=== PATIENT | female | born 1980 | race Asian ===

== ENCOUNTER 2017-06-13 20:45 | Inpatient (IN) | payer BC ==
[~2017-06-13] VITALS: Ht 157.5 cm; Wt 78.6 kg
[2017-06-13] MEDS ORDERED: PROMETHAZINE 25 MG/ML, 1ML IM ONE (21:30)
[2017-06-13] MEDS ORDERED: MEPERIDINE/PF 50 MG/ML IM PRN (21:30)
[2017-06-13] MEDS ORDERED: OXYTOCIN 30U/ 0.9% NaCL 500ML 500 ML IV ONE (21:36)
[2017-06-13] MEDS ORDERED: NEWBORN KIT ONE (21:38)
[2017-06-13] MEDS ORDERED: OXYTOCIN 30U/ 0.9% NaCL 500ML 500 ML ONE (21:38)
[2017-06-13] MEDS ORDERED: MISOPROSTOL 200 MCG TABLET ONE (21:38)
[2017-06-13] MEDS ORDERED: LIDOCAINE 1%, 20ML ONE (21:38)
[2017-06-13] MEDS ORDERED: FENTANYL PF 100 MCG/2ML ONE (21:43)
[2017-06-13] MEDS: LACTATED RINGERS 1,000 ML IV SCH ×2 (21:50→23:14)
[2017-06-13] MEDS ORDERED: TERBUTALINE 1 MG/ML, 1ML IVPush PRN (22:00)
[2017-06-13] MEDS ORDERED: FENTANYL PF 100 MCG/2ML IV PRN (22:00)
[2017-06-13] MEDS ORDERED: ONDANSETRON 2MG/ML, 2ML IVPush PRN (22:00)
[2017-06-13] MEDS ORDERED: FENTANYL PF 100 MCG/2ML IVPush PRN (22:00)
[2017-06-13 22:09] LABS: HEMATOCRIT 35.3 % (34.6-47.8); HEMOGLOBIN 11.7 g/dL (11.7-16.4); WHITE BLOOD COUNT 13.4 x10^3/uL (3.4-10)
[2017-06-13] MEDS ORDERED: FENTANYL/BUPIV./NS/PF 250 ML EPIDCONT ONE (22:42)
[2017-06-13] MEDS ORDERED: LIDOCAINE/PF 1.5%-EPI 1:200K, 30ML ONE (22:42)
[2017-06-13] MEDS ORDERED: FENTANYL/BUPIV./NS/PF 250 ML EPIDCONT SCH (23:14)
[2017-06-13] MEDS ORDERED: EPHEDRINE 50 MG/ML, 1ML IVPush PRN (23:30)
[2017-06-13] MEDS ORDERED: LACTATED RINGERS 1,000 ML IVBOLUS PRN (23:30)
[2017-06-13] MEDS ORDERED: NALOXONE 0.4 MG/ML, 1ML IVPush PRN (23:30)
[2017-06-14] MEDS ORDERED: PREN1TAB60 PO (00:23)
[2017-06-14] MEDS: LACTATED RINGERS 1,000 ML IV SCH ×2 (01:28→05:36)
[2017-06-14] MEDS ORDERED: OXYTOCIN 30U/ 0.9% NaCL 500ML 500 ML IV PRN (05:34)
[2017-06-14] MEDS ORDERED: D5%-LACTATED RINGERS 1,000 ML IV SCH (06:01)
[2017-06-14] MEDS ORDERED: AMPICILLIN 2 GM in SODIUM CHLORIDE 0.9% 100 ML IV SCH (07:30)
[2017-06-14] MEDS ORDERED: GENTAMICIN PER PHARMACY MC PRN (07:30)
[2017-06-14] MEDS ORDERED: ACETAMINOPHEN 325 MG TABLET ONE (07:30)
[2017-06-14] MEDS ORDERED: ACETAMINOPHEN 325 MG TABLET PO PRN ×4 (07:30→10:00)
[2017-06-14] MEDS ORDERED: GENTAMICIN 360 MG in SODIUM CHLORIDE 0.9% 100 ML IV SCH (08:00)
[2017-06-14] MEDS ORDERED: PHARMACOKINETIC MONITORING MC PRN (08:00)
[2017-06-14] MEDS ORDERED: PHARMACOKINETIC CONSULTATION MC ONE (08:00)
[2017-06-14] MEDS: OXYTOCIN 30U/ 0.9% NaCL 500ML 500 ML IV SCH ×2 (09:53→19:53)
[2017-06-14] MEDS ORDERED: CARBOPROST TROMETHAMINE 250 MCG/ML, 1ML IM PRN (10:00)
[2017-06-14] MEDS ORDERED: GLYCERIN ADULT SUPP PR PRN (10:00)
[2017-06-14] MEDS ORDERED: OXYcodone/APAP 5/325MG TABLET PO PRN ×2 (10:00)
[2017-06-14] MEDS ORDERED: BISACODYL 10 MG SUPP PR PRN (10:00)
[2017-06-14] MEDS ORDERED: METHYLERGONOVINE 0.2 MG/ML IM PRN (10:00)
[2017-06-14] MEDS ORDERED: MISOPROSTOL 200 MCG TABLET PR PRN (10:00)
[2017-06-14] MEDS ORDERED: ONDANSETRON 2MG/ML, 2ML IV PRN (10:00)
[2017-06-14 11:34] VITALS: BP 105/60
[2017-06-14 15:59] VITALS: BP 110/73
[2017-06-14 19:00] VITALS: BP 109/80
[2017-06-14] MEDS: IBUPROFEN 600 MG TABLET PO PRN (19:03)
[2017-06-14] MEDS: DOCUSATE 100 MG CAPSULE PO PRN (19:03)
[2017-06-14 19:05] LABS: HEMATOCRIT 33.6 % (34.6-47.8); HEMOGLOBIN 11.2 g/dL (11.7-16.4); WHITE BLOOD COUNT 22.3 x10^3/uL (3.4-10)
[2017-06-14 20:08] LABS: DIFF TOTAL CELLS COUNTED 100 CELL DIFF
[2017-06-14 20:11] LABS: ANISOCYTOSIS 1+; VERIFY COUNTS? YES
[2017-06-14] MEDS ORDERED: LIDOCAINE/PF 1.5%-EPI 1:200K, 30ML ONE (22:46)
[2017-06-14] MEDS ORDERED: EPHEDRINE 50 MG/ML, 1ML ONE (22:46)
[2017-06-15 00:11] VITALS: BP 95/57
[2017-06-15 03:50] VITALS: BP 100/62
[2017-06-15] MEDS: IBUPROFEN 600 MG TABLET PO PRN ×4 (03:50→23:38)
[2017-06-15] MEDS: OXYTOCIN 30U/ 0.9% NaCL 500ML 500 ML IV SCH ×3 (05:53→22:00)
[2017-06-15] MEDS ORDERED: PRENATAL VIT/IRON/FA 1 EACH TABLET ONE (07:08)
[2017-06-15 07:30] VITALS: BP 92/57
[2017-06-15] MEDS ORDERED: PRENATAL VIT/IRON/FA 1 EACH TABLET PO SCH (09:00)
[2017-06-15] MEDS: DOCUSATE 100 MG CAPSULE PO PRN (20:25)
[2017-06-15 21:10] VITALS: BP 120/78
[2017-06-15] MEDS ORDERED: ONDANSETRON 2MG/ML, 2ML IV PRN (22:00)
[2017-06-15] MEDS ORDERED: METHYLERGONOVINE 0.2 MG/ML IM PRN (22:00)
[2017-06-15] MEDS ORDERED: ACETAMINOPHEN 325 MG TABLET PO PRN ×2 (22:00)
[2017-06-15] MEDS ORDERED: BISACODYL 10 MG SUPP PR PRN (22:00)
[2017-06-15] MEDS ORDERED: OXYcodone/APAP 5/325MG TABLET PO PRN (22:00)
[2017-06-16] MEDS: OXYcodone/APAP 5/325MG TABLET PO PRN ×2 (00:26→07:44)
[2017-06-16] MEDS ORDERED: PRENATAL VIT/IRON/FA 1 EACH TABLET ONE (07:41)
[2017-06-16] MEDS: DOCUSATE 100 MG CAPSULE PO PRN (07:43)
[2017-06-16] MEDS: IBUPROFEN 600 MG TABLET PO PRN (07:43)
[2017-06-16] MEDS: OXYTOCIN 30U/ 0.9% NaCL 500ML 500 ML IV SCH ×2 (08:00→09:05)
[2017-06-16 08:10] VITALS: BP 122/73
[2017-06-16] MEDS ORDERED: PRENATAL VIT/IRON/FA 1 EACH TABLET PO SCH (09:00)
[2017-06-16] MEDS ORDERED: OXYC-302 PO (10:54)
[2017-06-16] MEDS ORDERED: IBUP-1223 PO (10:55)
== END 2017-06-16 12:43 | disposition home or self-care (01) | DRG 775 ==
LOC: LDOP 20:45 → LDIP 21:40 → 2NW 06-14 11:21
PROVIDERS: ADMIT Obstetrics & Gynecology Gynecology; ATTEND Obstetrics & Gynecology Gynecology
PROC: 10E0XZZ Delivery of Products of Conception, External Approach (ICD-10-PCS; principal; 2017-06-14)
PROC: 0KQM0ZZ Repair Perineum Muscle, Open Approach (ICD-10-PCS; 2017-06-14)
DX: O69.81X0 Labor and delivery complicated by cord around neck, without compression, not applicable or unspecified (principal); O41.1230 Chorioamnionitis, third trimester, not applicable or unspecified; O09.523 Supervision of elderly multigravida, third trimester; Z37.0 Single live birth; O70.1 Second degree perineal laceration during delivery; Z3A.39 39 weeks gestation of pregnancy
CPT/HCPCS: 36415; 81001; 82565; 82803; 84520; 85025; 86850; 86900; J0290; J3010; J3490; J1580; J2590; J7120; J7121

== ENCOUNTER 2018-03-09 02:16 | Emergency (ER) | payer BC ==
[~2018-03-09] VITALS: Ht 157.5 cm; Wt 65.9 kg
[~2018-03-09 02:16] MED LIST: IBUP-1223 PO; OXYC-302 PO; PREN1TAB60 PO
[2018-03-09 02:18] VITALS: BP 121/79
== END 2018-03-09 02:31 | disposition left against medical advice (07) ==
LOC: ED 02:25
DX: Z53.21 Procedure and treatment not carried out due to patient leaving prior to being seen by health care provider (principal)